=== PATIENT | female | born 1990 | race Caucasian/White ===

== ENCOUNTER 2018-09-26 21:34 | Emergency (ER) | payer SELFPAY ==
--- OUTSIDE RECORDS SUMMARY | 2018-09-26 21:36 | XMS REPORT | Summary of Care ---
Author Organization Unknown Address Unknown Phone Unavailable Encounter SHADI Jj(ALENA) [id number] Date(s): 12/07/13 - 12/07/13 [facility] [address] Discharge Diagnosis: Acute leg pain Discharge Disposition: Home Physician Attending: Jailene Davis MD Reason for Visit FOOT Vital Signs Most recent to 1 2 oldest [Reference Range]: Height 162.56 cm (12/07/13 4:52 PM) Temperature Oral 98.0 DegF 99.2 DegF [96.4-99.1 DegF] (12/07/13 8:41 PM) *HI* (12/07/13 4:52 PM) Systolic Blood 114 mmHg 122 mmHg Pressure [90-140 (12/07/13 8:41 PM) (12/07/13 4:52 PM) mmHg] Diastolic Blood 70 mmHg 81 mmHg Pressure [60-90 (12/07/13 8:41 PM) (12/07/13 4:52 PM) mmHg] Respiratory Rate 18 BRMIN 16 BRMIN [14-20 BRMIN] (12/07/13 8:41 PM) (12/07/13 4:52 PM) Peripheral Pulse 88 bpm 104 bpm Rate [60-100 bpm] (12/07/13 8:41 PM) *HI* (12/07/13 4:52 PM) Weight 50 kg (12/07/13 4:52 PM) Body Mass Index 18.92 m2 (12/07/13 4:52 PM) Problem List No data available for this section Allergies, Adverse Reactions, Alerts Substance Reaction Severity Status Lexapro Active Medications ibuprofen 600 mg, Route: PO, Drug form: TAB, ONCE, Dosing Weight 50, kg, Priority: STAT, S tart date: 12/07/13 17:44:00, Stop date: 12/07/13 17:44:00 Start Date: 12/07/13 Stop Date: 12/07/13 Status: Completed [place] 5/325 oral tablet 1 tab, Route: PO, Dosing Weight 50, kg, ONCE, Start date: 12/07/13 17:45:00, Sto p date: 12/07/13 17:45:00 Start Date: 12/07/13 Stop Date: 12/07/13 Status: Completed Results ELECTROLYTES Most recent to 1 oldest [Reference Range]: Sodium Lvl [135-145 141 mEq/L mEq/L] (12/07/13 6:45 PM) Potassium Lvl 3.9 mEq/L [3.5-5.1 mEq/L] (12/07/13 6:45 PM) Chloride Lvl [95-109 107 mEq/L mEq/L] (12/07/13 6:45 PM) CO2 [24-32 mEq/L] 37 mEq/L *HI* (12/07/13 6:45 PM) AGAP [10.0-20.0 0.9 mEq/L mEq/L] *LOW* (12/07/13 6:45 PM) CHEM PANEL Most recent to 1 oldest [Reference Range]: Creatinine Lvl 0.8 mg/dL [0.5-1.4 mg/dL] (12/07/13 6:45 PM) eGFR 106 mL/min/1.73m2 1 *NA* (12/07/13 6:45 PM) BUN [7-22 mg/dL] 9 mg/dL (12/07/13 6:45 PM) B/C Ratio [6-25] 11 (12/07/13 6:45 PM) Glucose Lvl [70-99 92 mg/dL 2 mg/dL] (12/07/13 6:45 PM) Total Protein 6.7 g/dL [6.4-8.4 g/dL] (12/07/13 6:45 PM) Albumin Lvl [3.5-5.0 3.8 g/dL g/dL] (12/07/13 6:45 PM) Globulin [2.0-4.0 2.9 g/dL g/dL] (12/07/13 6:45 PM) A/G Ratio [0.7-1.6] 1.3 (12/07/13 6:45 PM) Calcium Lvl 8.6 mg/dL [8.5-10.5 mg/dL] (12/07/13 6:45 PM) ALT [0-65 unit/L] 15 unit/L (12/07/13 6:45 PM) AST [0-37 unit/L] 20 unit/L (12/07/13 6:45 PM) Alk Phos [39-136 67 unit/L unit/L] (12/07/13 6:45 PM) Bili Total [0.2-1.3 0.7 mg/dL mg/dL] (12/07/13 6:45 PM) 1Result Comment: The eGFR is calculated using the CKD-EPI formula. In most young, healthy individuals the eGFR will be >90 mL/min/1.73m2. The eGFR declines with age. An eGFR of 60-89 may be normal in some populations, particularly the elderly, for whom the CKD-EPI formula has not been extensively validated. Use of the eGFR is not recommended in the following populations: Individuals with unstable creatinine concentrations, including patients and those with serious co-morbid conditions. Patients with extremes in muscle mass or diet. The data above are obtained from the National Kidney Disease Education Program ( NKDEP) which additionally recommends that when the eGFR is used in patients with extremes of body mass index for purposes of drug dosing, the eGFR should be mul tiplied by the estimated BMI. 2Interpretive Data: Adult reference range values reflect the clinical guidelines of the [place] Diabetes [employer]. Medications Administered During Your Visit No data available for this section Immunizations No data available for this section Social History Social History Type Response Smoking Status Never smoker, Exposure to Tobacco Smoke None, Cigarette Smoking Last 365 Days No, Reg Smoking Cessation Counseling No
--- OUTSIDE RECORDS SUMMARY | 2018-09-26 21:36 | XMS REPORT | Encounter Summary ---
Author Organization Unknown Address [address] [place] [address] Phone [phone] Care Team Providers Care Lap Cutter Name Role Phone Lawson Solis 3 [phone] Reason for Visit Medical Complaint Instructions 1. Pain in throat sore throat: care instructions Lidocaine Viscous 2 % mucosal solution rapid strep group A, throat 2. Influenza-like symptoms rapid flu (A+B) 3. Headache headache: care instructions Discussion Note Pt is in NAD; Verbalizes understanding of all instructions with no questions at this time. Plan of Care Patient Instructions Gargle and spit viscous lidocaine as needed for sore throat as directed. Alternate with Ibuprofen and acetaminophen every 4hrs as needed for pain/fever/headache. Proper hydration and rest. Return to work/school if free of fever for 24-hrs. Do not share any utensils/cups, no kissing, recommend hand washing after coughing/sneezing/blowing nose and cover face when you do so Take medications as prescribed. Return to clinic or follow up with your PCP within 2-3 days if symptoms worsen as discussed. Reminders Provider Appointments None recorded. Lab Rapid Strep Group a, Throat 05/22/2017 [facility] Rapid Flu (A+B) 05/22/2017 [facility] Referral None recorded. Procedures None recorded. Surgeries None recorded. Imaging None recorded. Medications Name Start Date EpiPen 2-Nathan 0.3 mg/0.3 mL injection, auto-injector USE DIRECTED FOR SEVERE ALLERGIC REACTION. Lidocaine Viscous 2 % mucosal solution Take 10 mL every 3 hours by oral route as needed. midodrine 5 mg tablet TAKE ONE (1) TABLET(S) BY MOUTH THREE TIMES A DAY. ProAir HFA 90 mcg/actuation aerosol inhaler Medications Administered None recorded. Vitals Height Weight BMI Blood Pressure 5 ft 5 in 140 lbs 23.3 kg/m2 110/72 mm[Hg] Lab Results Date Name Specimen Result Interpretation Description Value Range Status Address Rapid Flu (A+B) Influenza a negative [facility]: [facility] Influenza B negative [facility]: [facility] Rapid Strep Group a, Throat Result negative [facility]: [facility] Swab Location Left and Right tonsillar pillars [facility]: [facility] Allergies Code Code System Name Reaction Severity Status Onset 158634 RxNorm Lexapro Hives Active Rash Active Problems Name Status Onset Date Source Common Cold Active Encounter Nasopharyngitis Active Encounter Acute Sinusitis Active Encounter Acute Pharyngitis Active Encounter Upper Respiratory Infection Active Encounter Aphthous Ulceration of Skin And/or Mucous Membrane Active Encounter Acute Cystitis Active Encounter Urinary Tract Infectious Disease Active Encounter Skin Lesion Active Encounter Influenza-like Symptoms Active Encounter Procedures Date Name Performed by 07/05/2013 Endometrial Cryoablation Information not available Removal of Tonsils Information not available Vaccine List Vaccine Type meningococcal MCV4P 07/05/2009 Tdap 07/05/2009 Social History Smoking Status Never Smoker Past Encounters 05/22/2017 Pain in Throat; Influenza-like Symptoms; Headache Conchita Gaytan, SCIENTIFIC ASSOCIATE-C: [address] [place] [address], Ph. History of Present Illness [id number] Reported By: Patient HPI: Quality: symptoms worse during the day. Duration: 3 days. Severity: subjective temperature. Context: no ill contacts, no tick/insect bites, no recent travel, no new medications. Associated Symptoms: no muscle aches, no rash, no lethargy, fever/chills, headache; sore throat. Modifying Factors nothing gives relief Review of Systems:ROS as noted in the HPI Review of Systems Basic Reported By: Patient Physical Exam Adult Basic, Adult Female Complete, Adult Male Complete Reported By: Patient Constitutional: General Appearance: healthy-appearing, well-nourished, well-developed. Level of Distress: NAD. Ambulation: ambulating normally Psychiatric: Mental Status: active and alert. Orientation: to time, to place, to person Eyes: Lids and Conjunctivae: non-injected, no discharge, no pallor. Pupils: PERRLA. Corneas: grossly intact. EOM: EOMI. Lens: clear. Vision: peripheral vision grossly intact Kju-Oiye-Yjurg-Throat: Ears: no lesions on external ear, no outer ear tenderness, EACs clear, TMs clear. Hearing: no hearing loss. Nose: no lesions on external nose, nares patent, no septal deviation, nasal passages clear, no sinus tenderness, nasal discharge--rhinorrhea, post nasal drip. Lips, Teeth, and Gums: no mouth or lip ulcers, no bleeding gums, normal dentition. Oropharynx: moist mucous membranes, no erythema, no exudates, tonsils absent Neck: Neck: supple. Lymph Nodes: no cervical LAD Lungs: Respiratory effort: no dyspnea, no tachypnea, no use of accessory muscles, no intercostal retractions. Auscultation: breath sounds normal, good air movement Cardiovascular: Heart Auscultation: RRR, no murmurs Neurologic: Gait and Station: normal gait, normal station. Cranial Nerves: grossly intact. Sensation: grossly intact. Reflexes: DTRs 2+ bilaterally throughout. Coordination and Cerebellum: no tremor
--- OUTSIDE RECORDS SUMMARY | 2018-09-26 21:36 | XMS REPORT | Continuity of Care Document ---
Author Author [facility] Interface Address Unknown Phone Unavailable Problems Problem Status Onset Date Classification Date Reported Comments Source Pain in throat 05/22/2017 Diagnosis 05/22/2017 [facility] Influenza-like symptoms 05/22/2017 Diagnosis 05/22/2017 [facility] Headache 05/22/2017 Diagnosis 05/22/2017 [facility] FOOT Active 12/07/2013 [facility] Discharge Diagnosis: Acute leg pain 12/07/2013 12/10/2013 [facility] 789.01, 787.01, VOMITTING Active 11/14/2012 [facility] Common Cold Problem 05/22/2017 [facility] Nasopharyngitis Problem 05/22/2017 [facility] Acute Sinusitis Problem 05/22/2017 [facility] Acute Pharyngitis Problem 05/22/2017 [facility] Upper Respiratory Infection Problem 05/22/2017 [facility] Aphthous Ulceration of Skin And/or Mucous Membrane Problem 05/22/2017 [facility] Acute Cystitis Problem 05/22/2017 [facility] Urinary Tract Infectious Disease Problem 05/22/2017 [facility] Skin Lesion Problem 05/22/2017 [facility] Influenza-like Symptoms Problem 05/22/2017 [facility] Medications Medication Details Route Status Patient Instructions Ordering Provider Order Date Source Acetaminophen 325 MG / Hydrocodone Bitartrate 5 MG Oral Tablet [[place] 5/325] 1 tab, Route: PO, Dosing Weight 50, kg, ONCE, Start date: 12/07/13 17:45:00, Stop date: 12/07/13 17:45:00 Inactive 12/07/2013 [facility] Ibuprofen 600 mg, Route: PO, Drug form: TAB, ONCE, Dosing Weight 50, kg, Priority: STAT, Start date: 12/07/13 17:44:00, Stop date: 12/07/13 17:44:00 Inactive 12/07/2013 [facility] [id number] 0.3 ML Epinephrine 1 MG/ML Auto-Injector [Epipen] EpiPen 2-Nathan 0.3 mg/0.3 mL injection, auto-injector USE DIRECTED FOR SEVERE ALLERGIC REACTION. Active [facility] Lidocaine Hydrochloride 20 MG/ML Mucous Membrane Topical Solution Lidocaine Viscous 2 % mucosal solution Take 10 mL every 3 hours by oral route as needed. Active [facility] midodrine hydrochloride 5 MG Oral Tablet midodrine 5 mg tablet TAKE ONE (1) TABLET(S) BY MOUTH THREE TIMES A DAY. Active [facility] 200 ACTUAT Albuterol 0.09 MG/ACTUAT Metered Dose Inhaler [ProAir] ProAir HFA 90 mcg/actuation aerosol inhaler Active [facility] Allergies, Adverse Reactions, Alerts Substance Category Reaction Severity Reaction type Status Date Reported Comments Source Lexapro Assertion Drug allergy Active [facility] Immunizations Immunization Date Given Site Status Last Updated Comments Source meningococcal MCV4P 07/05/2009 completed [facility] Tdap 07/05/2009 completed [facility] Results Order Name Results Value Reference Range Date Interpretation Comments Source Influenza A negative 05/22/2017 [facility] Influenza B negative 05/22/2017 [facility] RESULT negative 05/22/2017 [facility] SWAB LOCATION Left and Right tonsillar pillars [facility] A/G Ratio 1.3 0.7 - 1.6 12/07/2013 [facility] CHEM PANEL B/C Ratio 11 6 - 25 12/07/2013 [facility] CHEM PANEL AGAP 0.9 meq/L 10.0 - 20.0 12/07/2013 [facility] CHEM PANEL Bili Total 0.7 mg/dL 0.2 - 1.3 12/07/2013 [facility] CHEM PANEL Alk Phos 67 unit/L 39 - 136 12/07/2013 [facility] CHEM PANEL Globulin 2.9 g/dL 2.0 - 4.0 12/07/2013 [facility] CHEM PANEL eGFR 106 mL/min/1.73m2 12/07/2013 1Result Comment: The eGFR is calculated using [...] from the National Kidney Disease Education Program (NKDEP) which additionally recommends that when the eGFR is used in patients with extremes of body mass index for purposes of drug dosing, the eGFR should be multiplied by the estimated BMI. [facility] CHEM PANEL Albumin Lvl 3.8 g/dL 3.5 - 5.0 12/07/2013 [facility] CHEM PANEL AST 20 unit/L 0 - 37 12/07/2013 [facility] CHEM PANEL ALT 15 unit/L 0 - 65 12/07/2013 [facility] CHEM PANEL Total Protein 6.7 g/dL 6.4 - 8.4 12/07/2013 [facility] CHEM PANEL CO2 37 meq/L 24 - 32 12/07/2013 [facility] CHEM PANEL Calcium Lvl 8.6 mg/dL 8.5 - 10.5 12/07/2013 [facility] CHEM PANEL Potassium Lvl 3.9 meq/L 3.5 - 5.1 12/07/2013 [facility] CHEM PANEL Chloride Lvl 107 meq/L 95 - 109 12/07/2013 [facility] CHEM PANEL Sodium Lvl 141 meq/L 135 - 145 12/07/2013 [facility] CHEM PANEL Glucose Lvl 92 mg/dL 70 - 99 12/07/2013 2Interpretive Data: Adult reference range values reflect the clinical guidelines of the [place] [employer]. [facility] CHEM PANEL BUN 9 mg/dL 7 - 22 12/07/2013 [facility] CHEM PANEL Creatinine Lvl 0.8 mg/dL 0.5 - 1.4 12/07/2013 [facility] Ext Lower Venous Doppler Unilat US Ext Lower Venous Doppler Unilat US EXAM: Left lower extremity venous Doppler ultrasound and SPECTRAL analysis. CLINICAL INFORMATION: Pain. Leg pain. TECHNIQUE: Duplex and color Doppler evaluation of the deep venous system of left leg. FINDINGS: The left common femoral, femoral, popliteal and tibial veins demonstrate normal color-flow, compressibility and augmentation. The left greater saphenous vein is also patent. IMPRESSION: No sonographic evidence of deep venous thrombosis in the left leg. SL: 12 12/07/2013 - - Read by: Kb Valadez MD Dictated Date/time: 12/07/13 18:50 Electronically Signed by: Kb Valadez MD 12/07/13 18:50 FINAL REPORT [facility] CHEMISTRY U Preg Negative (11/14/2012 14:53:00) Negative 11/14/2012 Normal [facility] Abdomen/Pelvis w/wo contrast CT Abdomen/Pelvis w/wo contrast CT CT abdomen without and with contrast, CT pelvis without and with contrast. TECHNIQUE: Contiguous transaxial images of the abdomen and pelvis were performed without and with IV contrast. Oral contrast was administered. COMPARISON: No priors CT ABDOMEN: The precontrast images do not reveal any renal or distal ureteric calculi. There is no hydronephrosis. Few surgical clips are noted in the right lower abdomen. The postcontrast images reveal normal morphology and enhancement of the liver, spleen, pancreas, both kidneys, both adrenals and the gallbladder. The bowel gas pattern is within normal limits. There is no free fluid or free air in the abdomen. No significant retroperitoneal lymphadenopathy is noted. The lung bases are clear. CT PELVIS: The bladder demonstrates normal morphology on the pre and post contrast images. Uterus and adnexa demonstrate normal morphology. No significant bony abnormality is noted. IMPRESSION: No significant abnormality is noted on the pre- and postcontrast CT of the abdomen and pelvis 11/14/2012 - - Read by: Cesar Reyna Dictated Date/time: 11/15/12 08:37 Electronically Signed by: Cesar Reyna MD 11/15/12 08:44 FINAL REPORT [facility] Gallbladder scan HIDA with meds (NM) Gallbladder scan HIDA with meds (NM) HIDA Scan with Kinevac: TECHNIQUE: 6 mCi of [id number] were administered intravenously and images obtained in anterior projection. FINDINGS: The liver demonstrates homogeneous tracer activity. The gallbladder and small bowel are well visualized 20 minutes postinjection. This eliminates any significant cystic duct or common bile duct obstruction. After acquisition of the data for approximately 60 minutes, 2.0 mcg of Kinevac were administered intravenously over a period of thirty minutes and an excretion curve plotted. The slope of the curve is normal and ejection fraction is calculated at 52 % (Normal range >50%). IMPRESSION: Normal HIDA scan with Kinevac. 11/14/2012 - - Read by: Cesar Reyna Dictated Date/time: 11/14/12 16:00 Electronically Signed by: Cesar Reyna MD 11/14/12 16:02 FINAL REPORT [facility] Vital Signs Vital Sign Value Date Comments Source Diastolic (mm Hg) 72 05/22/2017 [facility] Height 65 05/22/2017 [facility] Systolic (mm Hg) 110 05/22/2017 [facility] Weight 140 05/22/2017 [facility] Systolic (mm Hg) 114 12/08/2013 [facility] Diastolic (mm Hg) 70 12/08/2013 [facility] Respitory Rate 18 12/08/2013 [facility] Heart Rate 88 12/08/2013 [facility] Temperature Oral (F) 98.0 F 12/08/2013 [facility] Weight 50 12/07/2013 [facility] BMI Calculated 18.92 12/07/2013 [facility] Height 162.56 cm 12/07/2013 [facility] Systolic (mm Hg) 122 12/07/2013 [facility] Temperature Oral (F) 99.2 F 12/07/2013 [facility] Respitory Rate 16 12/07/2013 [facility] Heart Rate 104 12/07/2013 [facility] Diastolic (mm Hg) 81 12/07/2013 [facility] Encounters Location Location Details Encounter Type Encounter Number Reason For Visit Attending Provider ADM Date DC Date Status Source [facility] Outpatient [id number] 789.01, 787.01, VOMITTING TREVOR CARRILLO 11/14/2012 Active [facility] [id number] Jailene Susan 12/07/2013 12/08/2013 [facility] [place] [facility] - [id number] Gaytan, FOOD ANALYST-C: [address] [place] [address], Ph. [id number] Conchita Gaytan 05/22/2017 [facility] Procedures Procedure Code Date Perfomer Comments Source Endometrial Cryoablation 21704 07/05/2013 [facility] Removal of Tonsils 09327 [facility]
--- OUTSIDE RECORDS SUMMARY | 2018-09-26 21:36 | XMS REPORT | CCD ---
Author Author Auto Generated Organization [facility] Address Unknown Phone Unavailable Care Team Providers Care Colors Custodian Name Role Phone Salvador Moses RP Allergies, Adverse Reactions, Alerts Substance Reaction Status Lexapro Active Results CHEMISTRY Most recent to oldest [Reference Range]: 1 U Preg [Negative] Negative (11/14/2012 14:53:00)
--- OUTSIDE RECORDS SUMMARY | 2018-09-26 21:36 | XMS REPORT | Clinical Summary ---
Author Author [facility] Address Unknown Phone Unavailable Care Team Providers Care Electric Golf Cart Repairers Name Role Phone Asked, No Pcp PCP Unavailable Allergies Comments Active Allergy Reactions Severity Noted Date Escitalopram Oxalate 02/08/2017 Medications End Date Status Medication Sig Dispensed Refills Start Date Active midodrine (PROAMATINE) 5 TAKE ONE (1) 3 MG tablet TABLET(S) BY 7 MOUTH THREE TIMES A DAY. Active Problems No known active problems Family History Medical History Relation Name Comments Cancer Maternal Aunt No Known Problems Mother Relation Name Status Comments Maternal Aunt Mother Social History Date Tobacco Use Types Packs/Day Years Used Never Smoker Alcohol Use Drinks/Week oz/Week Comments No Sex Assigned at Date Recorded Not on file Industry Job Start Date Occupation Not on file Not on file Not on file Travel End Travel History Travel Start No recent travel history available. Last Filed Vital Signs Not on file Plan of Treatment Health Maintenance Due Date Last Done Comments CERVICAL CANCER SCREENING 2013 INFLUENZA VACCINE 02/02/2018 Results Not on fileafter 09/25/2017 Insurance Payer Benefit Subscriber ID Type Phone Address Plan / Group [facility] xxxxxxxxx PPO [employer]ER[employer] HMO/POS/PP O Advance Directives Patient has advance care planning documents on file. For more information, jo perdomo contact: Albert Diane [phone] [place] [address]
== END 2018-09-26 22:13 | disposition left against medical advice (07) ==
LOC: FSED 21:34
DX: R11.10 Vomiting, unspecified (principal)